=== PATIENT | female | born 1990 | race Two or more races ===

== ENCOUNTER 2018-06-18 10:15 | Observation (INO) | payer MEDICAID, OTHER ==
[~2018-06-18 10:15] MED LIST: PREN-145 OR
[2018-06-18 12:28] LABS: Eosinophils # (auto) 0.1 uL; Hematocrit 36.6 % (36.0-46.0); Hemoglobin 11.9 g/dL (12.2-16.2); Mean Corpuscular Hemoglobin 26.4 pg (28.0-32.0); Mean Corpuscular Hgb Conc. 32.5 g/dL (32.0-36.0); Red Blood Cells 4.51 10^6/uL (4.0-5.20)
[2018-06-18 12:30] LABS: Basophils # (auto) 0.1 uL; Basophils % (auto) 0.6 % (0.0-2.0); Eosinophils % (auto) 1.5 % (0.0-7.0); Lymphocytes # (auto) 1.7 uL; Lymphocytes % (auto) 18.8 % (10.0-50.0); Mean Corpuscular Volume 81.2 fL (80.0-100.0); Monocytes # (auto) 0.4 uL; Monocytes % (auto) 4.8 % (0.0-12.0); Neutrophils # (auto) 6.8 uL; Neutrophils % (auto) 74.3 % (37.0-80.0); Platelet Count (auto) 314 10^3/uL (140-450); White Blood Cell 9.2 10^3/uL (4.4-10.8)
[2018-06-18 12:33] LABS: Urine Bacteria FEW /hpf (None Seen); Urine Blood Negative /uL (Negative); Urine Mucus FEW (None Seen); Urine Specific Gravity 1.029 (1.001-1.035); Urine WBC 3 /hpf (0 - 5)
[2018-06-18 12:51] LABS: Albumin 2.8 g/dL (3.4-5.0); BUN/Creatinine Ratio 11.3; Bilirubin, Total 0.2 mg/dL (0.2-1.0); Calcium 9.2 mg/dL (8.5-10.1); Potassium 3.8 mmol/L (3.5-5.1); Total Protein 7.8 g/dL (6.4-8.2); Uric Acid 3.1 mg/dL (2.6-6.0)
[2018-06-18 13:06] LABS: INR 0.87 (0.9-1.15); Partial Thromboplastin Time 30.7 sec (23.78-33.04); Prothrombin Time 9.4 sec (9.27-12.13)
[2018-06-18 13:44] LABS: Fibrinogen 549.6 mg/dL (177-375)
[2018-06-19 05:06] LABS: RPR Non Reactive (Non Reactive)
[2018-06-19 08:08] LABS: Rubella Antibodies, IgG 2.12 index (Immune >0.99)
== END 2018-06-18 12:26 | disposition home or self-care (01) | DRG 566 ==
LOC: LDRP 10:15
PROVIDERS: ADMIT Specialist; ATTEND Specialist
DX: O24.419 Gestational diabetes mellitus in pregnancy, unspecified control (principal); Z3A.32 32 weeks gestation of pregnancy
CPT/HCPCS: 36415; 59025; 76805; 80053; 81001; 81002; 83036; 84550; 85025; 85384; 85610; 85730; 86592; 86762; 86790; 86850; 86900; 86901; 87340; G0378

== ENCOUNTER 2018-08-07 11:55 | Observation (INO) | payer MEDICAID | END 2018-08-07 13:55 | disposition home or self-care (01) | DRG 566 | LOC: LDRP 11:55 | PROVIDERS: ADMIT Specialist; ATTEND Specialist | DX: O48.0 Post-term pregnancy (principal); Z3A.40 40 weeks gestation of pregnancy | CPT/HCPCS: 59025; 76818; 81002; G0378 ==